=== PATIENT | male | born 1975 | race Caucasian/White ===

== ENCOUNTER 2019-10-04 00:59 | Emergency (ER) | payer MEDICAID ==
[2019-10-04] MEDS ORDERED: CEPHALEXIN 500 MG CAPSULE PO STA (01:11)
--- NOTE | 2019-10-04 01:14 | Emergency Department Record ---
History of Present Illness - General Chief complaint: Extremity Problem Stated complaint: LEFT WRIST LAQ Time Seen by Provider: 10/04/19 01:02 Source: Patient Mode of Arrival: Ambulatory Limitations: No limitations - History of Present Illness Initial comments: The patient is here due to cutting his anterior wrist on a broken glass lampshade 30 minutes ago. He denies any finger weakness but does have chronic numbness due to carpal tunnel. His Td is UTD. The patient denies any weakness or lightheadedness and did drive himself here without difficulty. The laceration never did squirt blood like it would if an artery was cut. Complaint: Extremity pain Onset/Timin -: Minutes(s) Location: Left - Related Data Previous Rx's Medication Instructions Recorded Cephalexin [Keflex] 500 mg PO QID #20 cap 10/04/19 Allergies Allergy/AdvReac Type Severity Reaction Status Date / Time No Known Drug Allergies Allergy Verified 08/07/16 08:28 Travel Screening - Travel/Exposure Within Last 30 Days Have you traveled within the last 30 days?: No - Travel/Exposure Within Last Year Have you traveled outside the [place] in the last year?: No - Additonal Travel Details Have you been exposed to anyone with a communicable illness?: No - Travel Symptoms Symptom Screening: None Review of Systems Constitutional: Denies: Chills, Fever Eyes: Denies: Eye discharge Past Medical History - SOCIAL HISTORY Smoking Status: Current every day smoker Alcohol Use: Occasional Drug Use: Occasional Drug Use Detail:: Marijuana - RESPIRATORY Hx Respiratory Disorders: No - CARDIOVASCULAR Hx Cardio Disorders: No - NEURO Hx Neuro Disorders: No - GI Hx GI Disorders: No - Hx Genitourinary Disorders: No - ENDOCRINE Hx Endocrine Disorders: No - MUSCULOSKELETAL Hx Musculoskeletal Disorders: No - PSYCH Hx Psych Problems: No - HEMATOLOGY/ONCOLOGY Hx Hematology/Oncology Disorders: No Family Medical History Any Significant Family History?: No Physical Exam - General General Appearance: Alert, Oriented x3, Cooperative, No acute distress - Head Head exam: Atraumatic - Extremities Extremities exam: Full ROM (The patient has full flexion of his wrist with normal tendon function. He also has normal flexion of the fingers. ), Normal capillary refill, Other (The patient does have slight decreased sensation to light touch and pin prick over the median distribution but he states that is chronic due to his carpal tunnel. The sensation over the ulnar nerve distributio n is normal.). negative: Normal inspection (There is a 6 cm oblique lac to the anterior L wrist. The lac is mainly over the ulnar anterior wrist.) Image of Hand: 1 - Area of lac. - Neurological Neurological exam: Alert, Normal gait. negative: Abnormal gait, Motor sensory deficit Course Vital Signs 10/04/19 01:00 Temperature 98.5 F Pulse Rate 104 H Respiratory 20 Rate Blood Pressure 149/100 Pulse Ox 97 - Reevaluation(s) Reevaluation #1: Procedure note: The L wrist was prepped sterile fashion and anesth. with a total of 6 cm of Lido 1% with Epi. The wound was lavaged with sterile saline and explored. There were no tendon or nerve injuries appreciated. The lac was then closed with a total of 11 4.0 nylon sutures. There were no complications. 10/04/19 02:09 Reevaluation #2: I did discuss the need to keep the lac dry for 2 days and to take the Keflex. He does understand the need to return for any signs of infection. 10/04/19 02:11 Medical Decision Making - Data Complexity MDM Data: X-Ray Ordered and/or Reviewed - Radiology Data Radiology results: Report reviewed (L wrist: Neg for fx of FB.) Disposition Disposition: Discharge Clinical Impression: Laceration of wrist without complication Qualifiers: Encounter type: initial encounter Laterality: left Qualified Code(s): S61.512A - Laceration without foreign body of left wrist, initial encounter Disposition: Home, Self-Care Condition: (2) Stable Instructions: Laceration (ED) Additional Instructions: Keep dry for 2 days then no soaking or swimming. Keep covered during the day and wear the wrist splint for a week. Take the Keflex and use Tylenol or Motrin for pain. Have the sutures removed in 10 days. Return to the ER for any worsening pain or signs of infection. Prescriptions: Cephalexin [Keflex] 500 mg PO QID #20 cap Forms: Patient Portal Access Time of Disposition: 02:04 Quality - Quality Measures Quality Measures: N/A - Blood Pressure Screening View Details: Yes Does Patient Have Any of the Following: No Blood Pressure Classification: Hypertensive Reading Systolic Measurement: 149 Diastolic Measurement: 100 Screening for High Blood Pressure: < First Hypertensive BP, F/U Documented > [G8950] First Hypertensive Follow-up Interventions: Referral to alternative/primary care provider.
--- NOTE | 2019-10-04 01:35 | RADIOLOGY REPORT ---
EXAMINATION: Left Wrist, Two Views EXAM DATE: 10/04/2019 1:25 AM TECHNIQUE: PA and lateral INDICATION: R/O FB COMPARISON: None ENCOUNTER: Initial FINDINGS: The bones are normally mineralized. There is normal alignment of the osseous structures with no evid ence of fracture or dislocation. There are no erosive or destructive lesions. There are no radiopaq ue foreign bodies. Soft tissue injury to the volar aspect of the wrist. Ulna minus variant. . IMPRESSION: Soft tissue injury with no evidence of radiopaque foreign body or osseous involvement. Ulnar minus va riant. Dictated by: Carlyle Wood DO on 10/04/2019 1:31 AM. .
[2019-10-04] MEDS ORDERED: ACETAMINOPHEN 325 MG TAB PO ONE (02:07)
== END 2019-10-04 02:23 | disposition home or self-care (01) ==
LOC: ER 00:59
DX: S61.512A Laceration without foreign body of left wrist, initial encounter (principal); W25.XXXA Contact with sharp glass, initial encounter; F17.210 Nicotine dependence, cigarettes, uncomplicated
CPT/HCPCS: 12002; 99283; 99284

== ENCOUNTER 2019-12-16 10:34 | Emergency (ER) | payer MEDICAID ==
--- NOTE | 2019-12-16 11:11 | Emergency Department Record ---
History of Present Illness - General Chief complaint: Extremity Problem Stated complaint: LEFT HAND SWELLING/PAIN Time Seen by Provider: 12/16/19 11:05 Source: Patient Mode of Arrival: Ambulatory Limitations: No limitations - History of Present Illness Initial comments: The patient is here due to L hand pain since injuring it on 10/04. He cut the L wrist accidentally and was seen here and sutured without difficulty. The patient does have a hx of chronic carpal tunnel dz. The patient states since the injury he has had persistent pain to the hand and worsening numbness to the L thumb and 2nd and 3rd fingers with decreased hand flexion. He has not seen his PCP for this. The patient denies any new injuries but states the hand has been mildly swollen for 3 days. MD Complaint: Extremity pain Onset/Timin -: Month(s) - Related Data Previous Rx's Medication Instructions Recorded Cephalexin [Keflex] 500 mg PO QID #28 cap 12/16/19 Naproxen [Naprosyn] 500 mg PO BID #14 tablet. 12/16/19 Allergies Allergy/AdvReac Type Severity Reaction Status Date / Time No Known Drug Allergies Allergy Verified 12/16/19 11:15 Review of Systems Constitutional: Denies: Chills, Fever Past Medical History - SOCIAL HISTORY Smoking Status: Current every day smoker Drug Use: Occasional Drug Use Detail:: Marijuana - RESPIRATORY Hx Respiratory Disorders: No - CARDIOVASCULAR Hx Cardio Disorders: No - NEURO Hx Neuro Disorders: No - GI Hx GI Disorders: No - Hx Genitourinary Disorders: No - ENDOCRINE Hx Endocrine Disorders: No - MUSCULOSKELETAL Hx Musculoskeletal Disorders: No - PSYCH Hx Psych Problems: No - HEMATOLOGY/ONCOLOGY Hx Hematology/Oncology Disorders: No Physical Exam - General General Appearance: Alert, Oriented x3, Cooperative, No acute distress - Head Head exam: Atraumatic - Eye Eye exam: Normal appearance - Extremities Extremities exam: Normal capillary refill, Tenderness (There is mild diffuse tenderness to the palm and fingers.), Other (The patient does complain of decreased sensation to the L palm and fingers in a median nerve distribution. ). negative: Normal inspection (The L hand does appear to have very slight edema compared to the R. There is no erythema, or warmth.), Full ROM (The patient does have a weak hand grasp which he states is worse than his normal carpal tunnel.) , Joint swelling Course - Reevaluation(s) Reevaluation #1: I did explain to the patient that it appears his issues are due to worsening carpal tunnel. He is to see his PCP for recheck and possible EMG testing. We also will refer him to a hand surgeon for further evaluation. I also did consult with Dr. Fong and he will see the patient in the office for F/U. 12/16/19 11:10 Disposition Disposition: Discharge Clinical Impression: Hand pain, left Disposition: Home, Self-Care Condition: (2) Stable Instructions: Arthralgia (ED) Additional Instructions: Please take the Naprosyn and Keflex as directed and please see your family doctor to have an EMG ordered on the L hand. Please also see DR. Awan for consultation. Call for an appointment. Prescriptions: Cephalexin [Keflex] 500 mg PO QID #28 cap Naproxen [Naprosyn] 500 mg PO BID #14 tablet. Referrals: UMA AWAN M.D. [MEDICAL DOCTOR] - Forms: Patient Portal Access Time of Disposition: 11:13 Quality - Quality Measures Quality Measures: N/A - Blood Pressure Screening View Details: Yes Does Patient Have Any of the Following: No Blood Pressure Classification: Hypertensive Reading Systolic Measurement: 159 Diastolic Measurement: 99 Screening for High Blood Pressure: < First Hypertensive BP, F/U Documented > [G8950] First Hypertensive Follow-up Interventions: Referral to alternative/primary care provider.
== END 2019-12-16 11:24 | disposition home or self-care (01) ==
LOC: ER 10:34
DX: G56.02 Carpal tunnel syndrome, left upper limb (principal); M25.542 Pain in joints of left hand; R60.0 Localized edema
CPT/HCPCS: 99283